=== PATIENT | male | born 1945 | race Caucasian/White ===

== ENCOUNTER 2018-05-27 13:00 | Outpatient (RCR) ==
--- NOTE | 2018-05-19 09:40 | RS.OPPTEV2 ---
Date of Note: 05/18/18 Visit #: 1 Number of visits approved by Insurance: n/a Date of Evaluation: 05/18/18 Payer Source: MEDICARE Date of Onset/Injury/Change in Status: 04/22/18 Surgery Performed?: Yes (R TKR) Treatment Diagnosis: aftercare following TKR History of Condition/Mechanism of Injury:: pt reports he has had long hx of problems with R knee. States had fx and pinning years ago. pt underwent R TKR on 04/22/[address] Calderon. 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 Functional Limitations: Sleep, Bending, Squatting, Ambulation, Community Access/ Integration Current Subjective/complaints:: pt reports he has not been icing his knee. States he did not feel it was important. Explained benefits of ice and elevation of RLE to decreased edema and pain. Treatment Side (optional): Right *Precautions: no electrical modalities due to pacemaker and h/o CA Medical History Medical History: Hypertension, COPD, Diabetes, Arthritis, Cancer (hodgkins lymphoma) Medical History Comments:: neuropathy Surgical History: Knee Replacement (R TKR 04/22/18) Surgical History Comments:: splenectomy, aortic valve replacement, pacemaker Smoking Status: Former smoker Hx Home Medications: losartan-HCTZ, metoprolol succinate, metformin, amlodipine , aspirin, xarelto, gabapentin, pantopraxole, simvastatin, symbicort, vitamin C , Iron, metoprolol tartrate Patient's Goals: get back to work Pain Assessment - Pain Description Pain Location: R knee Current Pain Intensity: 3 Worst Pain Intensity: 9 Functional Outcome Measure LE Functional Scale: 33 - G Codes & Severity Modifier G Codes & Modifier: n/a Source of G Code score: n/a Observation - Observation Posture: Forward Head, Rounded Shoulders, Increased Thoracic Kyphosis Handedness: Right Girth Measurement Lower: R knee 44.5cm pt with edema RLE nonpitting Gait - Gait Pattern General Gait Pattern Observation: Antalgic Gait Gait Comments: pt amb with antalgic gait due to R knee pain. pt with decreased heel strike/toe off gait pattern on R. pt amb with cane SBA with increased lat sway General Range of Motion: LUE WFL's, RUE shld flex is limited due to pain. LLE WFL's. RLE hip WFL, ankle WFL's Muscle Strength: LUE 5/5,. RUE shld flex 3-/5, elbow flex/ext 4+/5,. LLE 5/5. RLE hip flex 4/5, ankle DF/PF 4/5 Knee ROM: Left WFL's Knee Muscle Strength: Left WFL's - Right Knee ROM Right Knee Extension: -11 Right Knee Flexion: 100 (AAROM) Knee ROM Limitations: Soft Tissue Tightness, Muscle Weakness, Pain - Right Knee Strength Right Knee Extension: 3- Fair- Right Knee Flexion: 3 Fair Palpation Palpation Findings: Tenderness (R knee distal to incision) Sensation - Sensation Right Upper Extremity: Intact/Normal Left Upper Extremity: Intact/Normal Right Lower Extremity: Impaired Left Lower Extremity: Impaired Comments: pt does report occasional tingling/burning in BLE due to neuropathy Balance - Sitting Balance Static Sitting Balance: Normal Dynamic Sitting Balance: Normal - Standing Balance Static Standing Balance: Good Dynamic Standing Balance: Good - Comments Balance Assessment Comments: gait speed 0.8 consistent with limited community ambulator - Heat/Cryotherapy Treatment: Cryotherapy Comments:: R knee after ex x 10 mins Interventions - Exercise/Activities/Manual Therapy Exercises/Activities: pt performed RLE: QS with heel elevated, HS, SAQ, LAQ, SLR x 10 to 15 reps and hamstring stretch, standing hamstring curls x 5 Manual Therapy: n/a HOME EXERCISE PROGRAM: pt has written HEP from , added QS with heel elevated, hamstring stretch and standing ham curls - Charges Timed Code Treatment Minutes: 51 Total Treatment Time: 62 Procedures billed for this date of service:: eval med, ex EVALUATION COMPLEXITY LEVEL EVALUATION COMPLEXITY LEVEL: HISTORY: Medium (DM, OA, HTN), EXAM OF BODY SYSTEMS : Medium, CLINICAL PRESENTATION: Medium, CLINICAL DECISION MAKING: Medium Assessment Assessment: pt presents with decreased ROM R knee, decreased strength, balance, decreased gait ability. Feel pt would benefit from skilled PT for therex for LE strengthening/ROM as well as gait training and modalities to decrease edema. Patient Education: Home Exercise Program, Education of Plan of Care Rehab Potential: Good Short Term Goals Goal #1: pt independent with HEP Goal to be met by: 06/01/18 Goal #2: Improve R knee ROM flex 105 ext -5 Goal to be met by: 06/01/18 Goal #3: Improve gait sequencing and amb without cane in dept Goal to be met by: 06/01/18 Goal #4: pt with decreased edema RLE Goal to be met by: 06/01/18 Alcoholism Worker Goals Goal #1: pt demonstrate improved gait speed 1.0 meters/sec w/o cane independently Goal to be met by: 06/15/18 Goal #2: Improved R knee ROM flex 110 ext 0 Goal to be met by: 06/15/18 Goal #3: pt report decreased pain <3/10 with activity Goal to be met by: 06/15/18 Plan - Treatment to be Provided Procedures: Therapeutic Exercises, Therapeutic Activity, Gait Training, Manual Therapy, Massage, Patient Education Modalities: Cryotherapy - Treatment Plan Frequency: 2-3x a week Duration: 4 weeks Dates of Alcoholism Worker Goals: 06/15/18 Expiration date of current Insurance Approval:: n/a - Treatment Code (1) Aftercare following knee joint replacement surgery Code(s): Z47.1 - AFTERCARE FOLLOWING JOINT REPLACEMENT SURGERY; Z96.659 - PRESENCE OF UNSPECIFIED ARTIFICIAL KNEE JOINT Qualifiers: Laterality: right Qualified Code(s): Z47.1 - Aftercare following joint replacement surgery; Z96.651 - Presence of right artificial knee joint (2) Right knee pain Code(s): M25.561 - PAIN IN RIGHT KNEE Qualifiers: Chronicity: chronic Qualified Code(s): M25.561 - Pain in right knee; G89.29 - Other chronic pain (3) Effusion of knee joint right Code(s): M25.461 - EFFUSION, RIGHT KNEE (4) Stiffness of knee joint Qualifiers: Laterality: right Qualified Code(s): M25.661 - Stiffness of right knee, not elsewhere classified (5) Muscle weakness Code(s): M62.81 - MUSCLE WEAKNESS (GENERALIZED) (6) Gait difficulty Code(s): R26.9 - UNSPECIFIED ABNORMALITIES OF GAIT AND MOBILITY
--- NOTE | 2018-05-20 14:34 | RS.OPPTDN ---
Subjective Date of Note: 05/20/18 Visit #: 2 Number of visits approved by Insurance: 2-3x4 Date of Evaluation: 05/18/18 Payer Source: MEDICARE Treatment Diagnosis: aftercare following TKR Current Subjective/complaints:: Patient says he is hopeful to gain more motion of the knee so that he can return to work. He says that he has been trying to stretch his knee and uses ice at home. Patient says that he takes Tylenol prn. 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 Reports he awakens due to pain sometimes, but admits a history of sleep difficulty. *Precautions: no electrical modalities due to pacemaker and h/o CA - Heat/Cryotherapy Treatment: Cryotherapy (15 mins to the R knee ant/post in highly elevated position after therex) Interventions - Exercise/Activities/Manual Therapy Exercises/Activities: Patient began with receiving patellar mobs, ROM/ stretching for knee flexion/hamstring stretch and heel cord stretching for the R. Patient performs multiple reps for QS, heel slides, SAQ 1 04/29#, all 3x10 reps. Ball squeezes for isometric hip add, hip abd with knee extended, ham curls/DF green tband. Returned to more ROM and HS and stretching for knee flexion. LAQ at EOB after cryotherapy. Total minutes of Exercise: 33 Manual Therapy: n/a HOME EXERCISE PROGRAM: pt has written HEP from , added QS with heel elevated, hamstring stretch and standing ham curls - Charges Timed Code Treatment Minutes: 33 Total Treatment Time: 48 Procedures billed for this date of service:: cp, ex2 Assessment: Patient presents amb with straight cane ~200' to our dept slightly unsteady. He is able to carmel all therex with slight soreness at end ranges particularly with knee flexion. He demo swelling with 1+ pitting edema to the lower leg to ankle. He demo observable improvement with swelling following elevation and ice. Also, demo improved ease with active knee flexion and gait speed out of our dept after therapy. He should further improve with mobility and strength with continued visits. Patient Education: Education of diagnosis, Home Exercise Program, Home Safety, Education of Plan of Care Patient demonstrates compliance with HEP?: Yes Short Term Goals Goal #1: pt independent with HEP Goal to be met by: 06/01/18 Progress towards Goal:: Progressing Goal #2: Improve R knee ROM flex 105 ext -5 Goal to be met by: 06/01/18 Goal #3: Improve gait sequencing and amb without cane in dept Goal to be met by: 06/01/18 Goal #4: pt with decreased edema RLE Goal to be met by: 06/01/18 Progress towards Goal:: Progressing Warp Splitter Goals Goal #1: pt demonstrate improved gait speed 1.0 meters/sec w/o cane independently Goal to be met by: 06/15/18 Goal #2: Improved R knee ROM flex 110 ext 0 Goal to be met by: 06/15/18 Goal #3: pt report decreased pain <3/10 with activity Goal to be met by: 06/15/18 Plan Dates of Warp Splitter Goals: 06/15/18 Expiration date of current Insurance Approval:: 06/15/18 PLAN: Patient to continue 2-3 days per week for mobility and strength increase to the R knee
--- NOTE | 2018-05-22 14:28 | RS.OPPTDN ---
Subjective Date of Note: 05/22/18 Visit #: 3 Number of visits approved by Insurance: Reassess at 10th Date of Evaluation: 05/18/18 Payer Source: MEDICARE Treatment Diagnosis: aftercare following TKR Current Subjective/complaints:: Patient says he had a follow up yesterday with his ortho. He says he released him to return to work, however, Mr. 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 Reports his knee feels like it's going to give away today. Reports that he is working on HEP, but bending is the hardest for him. He is walking around at home without AD. States he does not return to MD until June. *Precautions: no electrical modalities due to pacemaker and h/o CA - Heat/Cryotherapy Treatment: Cryotherapy (15 mins to the R knee in elevated position supine after therex.) Interventions - Exercise/Activities/Manual Therapy Exercises/Activities: Patient continued with patellar mobs, ROM/stretching for knee flexion/hamstring stretch and heel cord stretching for the R. Patient performs multiple reps for QS, heel slides, SAQ 1 1/2#, all 3x10 reps. Knee extension stretching over bolster with intermittent active QS, ball squeezes for isometric hip add, hip abd with knee extended, ham curls/DF green tband. SLR 2x8, Returned to more ROM and HS and stretching for knee flexion. LAQ at EOB after cryotherapy. Began stationary bike forward/retro with intermittent cues to statically stretch for flexion and extension. 4 mins total. Total minutes of Exercise: 38 Manual Therapy: n/a HOME EXERCISE PROGRAM: pt has written HEP from , added QS with heel elevated, hamstring stretch and standing ham curls - Charges Timed Code Treatment Minutes: 38 Total Treatment Time: 53 Procedures billed for this date of service:: cp, ex3 Assessment: Patient demo mild swelling to the R knee extending to the ankle with 1+ pitting edema. He does show improvement with high elevation and cryotherapy again after therex. He has been experiencing times of near give way and fear of buckling, but appears steady in our dept. Continues to amb with SC, but admits independent amb at home. He was able to complete full revolutions on bike. He will need further strengthening and ROM activities to prepare him to return to work. Patient Education: Education of diagnosis, Body/Joint mechanics, Home Exercise Program, Home Safety, Education of Plan of Care Patient demonstrates compliance with HEP?: Yes Short Term Goals Goal #1: pt independent with HEP Goal to be met by: 06/01/18 Progress towards Goal:: Progressing Goal #2: Improve R knee ROM flex 105 ext -5 Goal to be met by: 06/01/18 Progress towards Goal:: Progressing Goal #3: Improve gait sequencing and amb without cane in dept Goal to be met by: 06/01/18 Goal #4: pt with decreased edema RLE Goal to be met by: 06/01/18 Progress towards Goal:: Progressing [facility] Goals Goal #1: pt demonstrate improved gait speed 1.0 meters/sec w/o cane independently Goal to be met by: 06/15/18 Goal #2: Improved R knee ROM flex 110 ext 0 Goal to be met by: 06/15/18 Goal #3: pt report decreased pain <3/10 with activity Goal to be met by: 06/15/18 Plan Dates of [facility] Goals: 06/15/18 Expiration date of current Insurance Approval:: 06/15/18 PLAN: Continue for therex to the R knee s/p TKR
--- NOTE | 2018-05-25 15:53 | RS.OPPTDN ---
Subjective Date of Note: 05/25/18 Visit #: 4 Number of visits approved by Insurance: 2-3x4 Date of Evaluation: 05/18/18 Payer Source: MEDICARE Treatment Diagnosis: aftercare following TKR Current Subjective/complaints:: Patient says that he does not feel he is getting any better. He asks how long will he have to have therapy before going back to work. He c/o ache to his knee and stiffness. *Precautions: no electrical modalities due to pacemaker and h/o CA - Heat/Cryotherapy Treatment: Hot Pack (15 mins surrounding the R knee in supine) Interventions - Exercise/Activities/Manual Therapy Exercises/Activities: Patient continued with patellar mobs, ROM/stretching for knee flexion/hamstring stretch and heel cord stretching for the R. Patient performs multiple reps for QS, heel slides, SAQ increased to 2 1/2#, all 3x10 reps. Knee extension stretching over bolster with intermittent active QS, ball squeezes for isometric hip add, hip abd with knee extended, ham curls/DF green tband. SLR 2x8, Returned to more ROM and HS and stretching for knee flexion. LAQ at EOB with assisted stretching afterwards. Continued with stationary bike forward/retro with intermittent cues to statically stretch for flexion and extension. 5 mins total. Patient needed to leave early to go to another MD appt. Total minutes of Exercise: 31 Manual Therapy: n/a HOME EXERCISE PROGRAM: pt has written HEP from , added QS with heel elevated, hamstring stretch and standing ham curls - Charges Timed Code Treatment Minutes: 31 Total Treatment Time: 46 Procedures billed for this date of service:: hp, ex2 Assessment: Applied heat today prior to therex to decrease ache and stiffness and to help with improving ROM. Patient amb using SC for the L UE instructing him on the reason why during his inquiry. Patient demo improvement with carmel to stretching R knee into flexion as this is the hardes t for him to tolerate. He is able to progress with strengthening to the R LE and demo improved ease with SLR and eccentric control. Patient Education: Education of diagnosis, Body/Joint mechanics, Home Exercise Program, Education of Plan of Care Patient demonstrates compliance with HEP?: Yes Short Term Goals Goal #1: pt independent with HEP Goal to be met by: 06/01/18 Progress towards Goal:: Progressing Goal #2: Improve R knee ROM flex 105 ext -5 Goal to be met by: 06/01/18 Progress towards Goal:: Progressing Goal #3: Improve gait sequencing and amb without cane in dept Goal to be met by: 06/01/18 Goal #4: pt with decreased edema RLE Goal to be met by: 06/01/18 Progress towards Goal:: Progressing Long-Term Goals Goal #1: pt demonstrate improved gait speed 1.0 meters/sec w/o cane independently Goal to be met by: 06/15/18 Goal #2: Improved R knee ROM flex 110 ext 0 Goal to be met by: 06/15/18 Goal #3: pt report decreased pain <3/10 with activity Goal to be met by: 06/15/18 Plan Dates of Long-Term Goals: 06/15/18 Expiration date of current Insurance Approval:: 06/15/18 PLAN: Continue with using heat intermittently to see if he is able to obtain more ROM and less ache to the R knee
--- NOTE | 2018-05-27 15:41 | RS.OPPTDN ---
Subjective Date of Note: 05/27/18 Visit #: 5 Number of visits approved by Insurance: Reassess at 10th, order is 2-3x4 Date of Evaluation: 05/18/18 Payer Source: MEDICARE Treatment Diagnosis: aftercare following TKR Current Subjective/complaints:: Patient asks, "When can I get rid of this cane? " He states he thought his pain should be gone by now. *Precautions: no electrical modalities due to pacemaker and h/o CA - Heat/Cryotherapy Treatment: Hot Pack (anterior/posterior R LE in supine x 15 mins) Interventions - Exercise/Activities/Manual Therapy Exercises/Activities: Patient continued with patellar mobs, ROM/stretching for knee flexion/hamstring stretch and heel cord stretching for the R. Patient performs multiple reps for QS, heel slides, SAQ increased to 3#, all 3x10 reps. Knee extension stretching over bolster with intermittent active QS, (on and off bolster), ball squeezes for isometric hip add, hip abd with knee extended, ham curls/DF green tband. SLR 2x8, Returned to more ROM and HS and stretching for knee flexion. LAQ 3# for terminal knee flexion and manual contract/relax without weight at EOB with assisted stretching afterwards. Continued with stationary bike forward/retro with intermittent cues to statically stretch for flexion and extension. 5 mins total. Began leg press machine for 30, 45, 60, 75# bilaterally x 10 ea. Patient educated in this activity with cues to control eccentric contractions and to perform slowly. Total minutes of Exercise: 40 Manual Therapy: n/a HOME EXERCISE PROGRAM: pt has written HEP from , added QS with heel elevated, hamstring stretch and standing ham curls - Charges Timed Code Treatment Minutes: 40 Total Treatment Time: 55 Procedures billed for this date of service:: hp, ex3 Assessment: Patient re-educated about his TKR and anatomy explaining recovery and that he demo good ROM for 4 weeks post op. He is amb with SC with slightly limited knee extension, but FWB. He is progressing with stretching and therex well carmel increased weight and multigym activities. He is wanting to return to work soon, but is understanding about his limitations and wants to be safe. Measurements will be taken on Friday. Patient Education: Education of diagnosis, Home Exercise Program, Education of Plan of Care Patient demonstrates compliance with HEP?: Yes Short Term Goals Goal #1: pt independent with HEP Goal to be met by: 06/01/18 Progress towards Goal:: Progressing Goal #2: Improve R knee ROM flex 105 ext -5 Goal to be met by: 06/01/18 Progress towards Goal:: Progressing Goal #3: Improve gait sequencing and amb without cane in dept Goal to be met by: 06/01/18 Goal #4: pt with decreased edema RLE Goal to be met by: 06/01/18 Progress towards Goal:: Progressing Longterm Goals Goal #1: pt demonstrate improved gait speed 1.0 meters/sec w/o cane independently Goal to be met by: 06/15/18 Goal #2: Improved R knee ROM flex 110 ext 0 Goal to be met by: 06/15/18 Goal #3: pt report decreased pain <3/10 with activity Goal to be met by: 06/15/18 Plan Dates of Lpn Rn Goals: 06/15/18 Expiration date of current Insurance Approval:: 06/15/18 PLAN: Patient to continue with stretching for ROM and progressive strengthening.
== END 2018-05-28 23:59 | disposition short-term general hospital (02) ==
PROVIDERS: ATTEND Orthopaedic Surgery
DX: Z47.1 Aftercare following joint replacement surgery (principal); Z96.651 Presence of right artificial knee joint; M25.561 Pain in right knee; G89.29 Other chronic pain; M25.461 Effusion, right knee; M25.661 Stiffness of right knee, not elsewhere classified; M62.81 Muscle weakness (generalized); R26.9 Unspecified abnormalities of gait and mobility

== ENCOUNTER 2018-06-23 10:00 | Outpatient (RCR) ==
--- NOTE | 2018-05-29 14:29 | RS.OPPTDN ---
Subjective Date of Note: 05/29/18 Visit #: 6 Number of visits approved by Insurance: Reassess at 10th Date of Evaluation: 05/18/18 Payer Source: MEDICARE Treatment Diagnosis: aftercare following TKR Current Subjective/complaints:: Patient says he is walking around in his house without his cane. He repeatedly asks when can he get rid of the cane all together and go back to work. He says he is stronger and doesn't feel like his knee is going to buckle as much. Admits he was sore after working on leg press , but states he wants to do it again to help his knees. *Precautions: no electrical modalities due to pacemaker and h/o CA - Heat/Cryotherapy Treatment: Hot Pack (20 mins to the anterior/posterior R knee ) Interventions - Exercise/Activities/Manual Therapy Exercises/Activities: Patient continued with patellar mobs, ROM/stretching for knee flexion/hamstring stretch and heel cord stretching for the R. Patient performs multiple reps for QS, heel slides, SAQ 3#, all 3x10 reps. Knee extension stretching over bolster with intermittent active QS, (on and off bolster), ball squeezes for isometric hip add, hip abd with knee extended, ham curls/DF green tband. SLR 2x8, Returned to more ROM and HS and stretching for knee flexion. LAQ 3# for terminal knee flexion and manual contract/relax without weight at EOB with assisted stretching afterwards. Continued with stationary bike forward/retro with intermittent cues to statically stretch for flexion and extension. 6mins total. Leg press machine for 30, 45, 60,# bilaterally with cues to stretch and hold during extension x 10 ea. Measurements taken. Total minutes of Exercise: 40 Manual Therapy: n/a HOME EXERCISE PROGRAM: pt has written HEP from , added QS with heel elevated, hamstring stretch and standing ham curls - Objective Findings Observations,measurements,etc.: -3 to 116 degrees actively,. 0 degrees with QS and 118 passively - Charges Timed Code Treatment Minutes: 40 Total Treatment Time: 60 Procedures billed for this date of service:: hp, ex3 Assessment: Patient attends with intermittently carrying SC to dept. He is progressing himself at home to amb independently. Consistent education on strengthening and making sure he is balanced enough and stable at home with independent gait before progressing to community. He is experiencing improved strength to the R LE, but still has reservations about returning to work too soon. He is apprehensive about "return to work evaluation" he must have to resume work duties after TKR, but wants to try. ROM is improving, see measurement tab. Patient Education: Education of diagnosis, Body/Joint mechanics, Home Exercise Program, Home Safety, Education of Plan of Care Patient demonstrates compliance with HEP?: Yes Short Term Goals Goal #1: pt independent with HEP Goal to be met by: 06/01/18 Progress towards Goal:: Progressing Goal #2: Improve R knee ROM flex 105 ext -5 Goal to be met by: 06/01/18 Progress towards Goal:: Met Goal #3: Improve gait sequencing and amb without cane in dept Goal to be met by: 06/01/18 Progress towards Goal:: Progressing Goal #4: pt with decreased edema RLE Goal to be met by: 06/01/18 Progress towards Goal:: Progressing Retirement Goals Goal #1: pt demonstrate improved gait speed 1.0 meters/sec w/o cane independently Goal to be met by: 06/15/18 Goal #2: Improved R knee ROM flex 110 ext 0 Goal to be met by: 06/15/18 Progress towards goal: Partially Met (met flexion goal) Goal #3: pt report decreased pain <3/10 with activity Goal to be met by: 06/15/18 Plan Dates of Retirement Goals: 06/15/18 Expiration date of current Insurance Approval:: 06/15/18 PLAN: Continue progressing for extension to the R knee to assist with more stable ambulation and wean from RI to independent.
--- NOTE | 2018-06-01 16:08 | RS.OPPTDN ---
Subjective Date of Note: 06/01/18 Visit #: 7 Number of visits approved by Insurance: 2-3x4 Date of Evaluation: 05/18/18 Payer Source: MEDICARE Treatment Diagnosis: aftercare following TKR Current Subjective/complaints:: Patient reports that he is using his cane less. Reports he is gaining strength also, but is still having trouble with getting his knee straight. *Precautions: no electrical modalities due to pacemaker and h/o CA - Heat/Cryotherapy Treatment: Hot Pack (15 mins to the R knee in extension stretch position) Interventions - Exercise/Activities/Manual Therapy Exercises/Activities: Patient continued with patellar mobs, ROM/stretching for knee flexion/hamstring stretch and heel cord stretching for the R. Patient performs multiple reps for QS, heel slides, SAQ 3#, all 3x10 reps. Knee extension stretching over bolster with intermittent active QS, (on and off bolster), ball squeezes for isometric hip add, hip abd with knee extended, ham curls/DF green tband. SLR 2x8, Returned to more ROM and HS and stretching for knee flexion. LAQ 3# for terminal knee flexion and manual contract/relax without weight at EOB with assisted stretching afterwards. Continued with stationary bike forward/retro with intermittent cues to statically stretch for flexion and extension. 6mins total. Leg press machine for 30, 45, 60,# bilaterally with cues to stretch and hold during extension x 10 ea. Total minutes of Exercise: 40 Manual Therapy: n/a HOME EXERCISE PROGRAM: pt has written HEP from , added QS with heel elevated, hamstring stretch and standing ham curls - Charges Timed Code Treatment Minutes: 40 Total Treatment Time: 60 Procedures billed for this date of service:: hp, ex3 Assessment: Patient amb to our dept with carrying SC only setting it down once ~ 150'. He is carmel increased ext stretching and less swelling into the R LE. Patient Education: Home Exercise Program, Education of Plan of Care Patient demonstrates compliance with HEP?: Yes Short Term Goals Goal #1: pt independent with HEP Goal to be met by: 06/01/18 Progress towards Goal:: Progressing Goal #2: Improve R knee ROM flex 105 ext -5 Goal to be met by: 06/01/18 Progress towards Goal:: Met Goal #3: Improve gait sequencing and amb without cane in dept Goal to be met by: 06/01/18 Progress towards Goal:: Progressing Goal #4: pt with decreased edema RLE Goal to be met by: 06/01/18 Progress towards Goal:: Progressing Halfway Goals Goal #1: pt demonstrate improved gait speed 1.0 meters/sec w/o cane independently Goal to be met by: 06/15/18 Goal #2: Improved R knee ROM flex 110 ext 0 Goal to be met by: 06/15/18 Progress towards goal: Partially Met (met flexion goal) Goal #3: pt report decreased pain <3/10 with activity Goal to be met by: 06/15/18 Plan Dates of Halfway Goals: 06/15/18 Expiration date of current Insurance Approval:: 06/15/18 PLAN: Patient to continue progressing R LE for ROM to assist with gait
--- NOTE | 2018-06-03 11:30 | RS.OPPTDN ---
Subjective Date of Note: 06/03/18 Visit #: 8 Number of visits approved by Insurance: Reassess at 10th Date of Evaluation: 05/18/18 Payer Source: MEDICARE Treatment Diagnosis: aftercare following TKR Current Subjective/complaints:: Patient says he feels unsteady today, but admits he feels this way everyday. He reports rain is affecting his swelling and aches today. *Precautions: no electrical modalities due to pacemaker and h/o CA - Heat/Cryotherapy Treatment: Cryotherapy (to anterior and posterior knee/calf in highly elevated position after therex x 20 mins) Interventions - Exercise/Activities/Manual Therapy Exercises/Activities: Patient continued with patellar mobs, ROM/stretching for knee flexion/hamstring stretch and heel cord stretching for the R. Patient performs multiple reps for QS, heel slides, SAQ 3#, all 3x10 reps. Knee extension stretching over bolster with intermittent active QS, (on and off bolster), ball squeezes for isometric hip add, hip abd with knee extended, ham curls/DF green tband. SLR 2x8, Ended with more patellar mobs and knee extension stretching. Prone: extension hangs with and without overpressure. Cryotherapy after. Total minutes of Exercise: 38 Manual Therapy: n/a HOME EXERCISE PROGRAM: pt has written HEP from , added QS with heel elevated, hamstring stretch and standing ham curls - Charges Timed Code Treatment Minutes: 38 Total Treatment Time: 58 Procedures billed for this date of service:: cp, ex3 Assessment: Patient progressing with demo 0 degrees extension after all therex and stretching. He stumbles once, but easily corrects and did not lose bal. He is now carrying his cane along with him in/out dept. Patient demo mild swelling with 1+edema along the lower leg, but none at ankle, however this does improve with cryotherapy. Prompts given intermittently for heel strike/toe off with gait. Patient Education: Home Exercise Program, Education of Plan of Care Patient demonstrates compliance with HEP?: Yes Short Term Goals Goal #1: pt independent with HEP Goal to be met by: 06/01/18 Progress towards Goal:: Progressing Goal #2: Improve R knee ROM flex 105 ext -5 Goal to be met by: 06/01/18 Progress towards Goal:: Met Goal #3: Improve gait sequencing and amb without cane in dept Goal to be met by: 06/01/18 Progress towards Goal:: Partially Met (Amb without AD, but still educated pt about proper heel strike) Goal #4: pt with decreased edema RLE Goal to be met by: 06/01/18 Progress towards Goal:: Progressing [facility] Goals Goal #1: pt demonstrate improved gait speed 1.0 meters/sec w/o cane independently Goal to be met by: 06/15/18 Goal #2: Improved R knee ROM flex 110 ext 0 Goal to be met by: 06/15/18 Progress towards goal: Partially Met (met flexion goal, demo 0 today, but not yet consistent) Goal #3: pt report decreased pain <3/10 with activity Goal to be met by: 06/15/18 Plan Dates of Manager Land Goals: 06/15/18 Expiration date of current Insurance Approval:: 06/15/18 PLAN: Continue progressing ROM to demo consistent 0 degrees.
--- NOTE | 2018-06-05 14:11 | RS.OPPTDN ---
Subjective Date of Note: 06/05/18 Visit #: 9 Number of visits approved by Insurance: Reassess at 10th Date of Evaluation: 05/18/18 Payer Source: MEDICARE Treatment Diagnosis: aftercare following TKR Current Subjective/complaints:: Patient says he was not able to see any improvement with pain or swelling with ice last session. He does say he is feeling more comfortable with walking without *Precautions: no electrical modalities due to pacemaker and h/o CA Interventions - Exercise/Activities/Manual Therapy Exercises/Activities: Patient continued with patellar mobs, ROM/stretching for knee flexion/hamstring stretch and heel cord stretching for the R. Patient performs multiple reps for QS, heel slides, SAQ 3#, all 3x10 reps. Knee extension stretching over bolster with intermittent active QS, (on and off bolster), ball squeezes for isometric hip add, hip abd with knee extended, ham curls/DF green tband. SLR 2x8, Ended with more patellar mobs and knee extension stretching. Leg press 45#, 60#, 75# 2x10, stationary bike for/retro 7mins. Total minutes of Exercise: 50 Manual Therapy: n/a HOME EXERCISE PROGRAM: pt has written HEP from , added QS with heel elevated, hamstring stretch and standing ham curls - Charges Timed Code Treatment Minutes: 50 Total Treatment Time: 50 Procedures billed for this date of service:: ex3 Assessment: Patient becoming more confident with amb without AD at home and does not feel like he needs to rely on it when coming to therapy. He is able to advance with all therex well demo less swelling to the R LE to ankle allowing improved extension to -1 to -2 at rest and 0 with QS. Patient Education: Home Safety, Education of Plan of Care Patient demonstrates compliance with HEP?: Yes Short Term Goals Goal #1: pt independent with HEP Goal to be met by: 06/01/18 Progress towards Goal:: Progressing Goal #2: Improve R knee ROM flex 105 ext -5 Goal to be met by: 06/01/18 Progress towards Goal:: Met Goal #3: Improve gait sequencing and amb without cane in dept Goal to be met by: 06/01/18 Progress towards Goal:: Partially Met (Amb without AD, but still educated pt about proper heel strike) Goal #4: pt with decreased edema RLE Goal to be met by: 06/01/18 Progress towards Goal:: Progressing Retirement Goals Goal #1: pt demonstrate improved gait speed 1.0 meters/sec w/o cane independently Goal to be met by: 06/15/18 Goal #2: Improved R knee ROM flex 110 ext 0 Goal to be met by: 06/15/18 Progress towards goal: Partially Met (met flexion goal, demo 0 today, but not yet consistent) Goal #3: pt report decreased pain <3/10 with activity Goal to be met by: 06/15/18 Plan Dates of Retirement Goals: 06/15/18 Expiration date of current Insurance Approval:: 06/15/18 PLAN: REassess next session.
--- NOTE | 2018-06-10 16:22 | RS.OPPTDN ---
Subjective Date of Note: 06/10/18 Visit #: 11 Number of visits approved by Insurance: 12 Date of Evaluation: 05/18/18 Payer Source: MEDICARE Treatment Diagnosis: aftercare following TKR Current Subjective/complaints:: Patient says that he feels he is gaining some stability to his knee and thinks his dizziness at last appt was due to his glasses. Reports that he just had his glasses strengthened and may be making him feel unsteady. *Precautions: no electrical modalities due to pacemaker and h/o CA Interventions - Exercise/Activities/Manual Therapy Exercises/Activities: Patient continued with patellar mobs, ROM/stretching for knee flexion/hamstring stretch and heel cord stretching for the R. Patient performs multiple reps for QS, heel slides, SAQ increased to 4#, all 3x10 reps. Knee extension stretching over bolster with intermittent active QS, (on and off bolster), ball squeezes for isometric hip add, hip abd with knee extended, ham curls/DF green tband. SLR 2x8, Ended with more patellar mobs and knee extension stretching. EOB: contract/relax, long axis distraction, Leg press 45 #, 60#, 75, 90# 2x10, Omitted stationary bike due to doing this at home daily. Standing at railing step up board x 10 reps with instruction on sequencing using 1 hand rail. Total minutes of Exercise: 45 Manual Therapy: n/a HOME EXERCISE PROGRAM: pt has written HEP from , added QS with heel elevated, hamstring stretch and standing ham curls - Charges Timed Code Treatment Minutes: 45 Total Treatment Time: 45 Procedures billed for this date of service:: ex3 Assessment: Patient demo 4+-5/5 quads and hams today. He demo improved amb and stability allowing him to walk within the hospital carrying his cane at times while removing his glasses. He believes his new strengthened glasses are too strong and was the reason to why he was unsteady at last session. Patient Education: Home Exercise Program, Home Safety Patient demonstrates compliance with HEP?: Yes Short Term Goals Goal #1: pt independent with HEP Goal to be met by: 06/01/18 Progress towards Goal:: Progressing Goal #2: Improve R knee ROM flex 105 ext -5 Goal to be met by: 06/01/18 Progress towards Goal:: Met Goal #3: Improve gait sequencing and amb without cane in dept Goal to be met by: 06/01/18 Progress towards Goal:: Partially Met (Amb without AD, but still educated pt about proper heel strike) Goal #4: pt with decreased edema RLE Goal to be met by: 06/01/18 Progress towards Goal:: Progressing [facility] Home Goals Goal #1: pt demonstrate improved gait speed 1.0 meters/sec w/o cane independently Goal to be met by: 06/15/18 Goal #2: Improved R knee ROM flex 110 ext 0 Goal to be met by: 06/15/18 Progress towards goal: Partially Met (met flexion goal, demo 0 today, but not yet consistent) Goal #3: pt report decreased pain <3/10 with activity Goal to be met by: 06/15/18 Plan Dates of Production Quality Manager Goals: 06/15/18 Expiration date of current Insurance Approval:: 06/15/18 PLAN: 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 Patient may benefit from BIW x 2-3 more weeks.
--- NOTE | 2018-06-12 10:07 | RS.PTSUM ---
Progress Note/Summary Date of Note: 06/08/18 Date of Evaluation: 05/18/18 Number of Visits: 10 Number of visits approved by Insurance: n/a Reporting Period for this Progress Note: 05/18/18-06/08/18 Current Complaints/Gains: pt reports that he feels he has improved stability of his knee and is able to amb in the home with cane independently. pt states he is working on HEP often and wants to return to work as soon as possible. States he takes tylenol intermittently. pt reports that he has to be able to amb without cane to return to work. Objective Measurements/Presentation: ROM R knee flex 121 ext 0 with quad set, AROM ext -2. Strength quads 4+ to 5/5 quads and hamstrings, pt has advanced with step ups and leg press. Amb with straight cane community distances. LE functional scale 36/80 eval . G Codes: n/a Source of G Code Score: n/a - Short Term Goals Goal #1: pt independent with HEP Goal to be met by: 06/17/18 Progress towards Goal:: Progressing Goal #2: Improve R knee ROM flex 105 ext -5 Goal to be met by: 06/01/18 Progress towards Goal:: Met Goal #3: Improve gait sequencing and amb without cane in dept Goal to be met by: 06/17/18 Progress towards Goal:: Met Goal #4: pt with decreased edema RLE Goal to be met by: 06/01/18 Progress towards Goal:: Met - Correction Goals Goal #1: pt demonstrate improved gait speed 1.0 meters/sec w/o cane independently Goal to be met by: 06/26/18 Goal #2: Improved R knee ROM flex 110 ext 0 Goal to be met by: 06/26/18 Progress towards goal: Partially Met (not consistently met) Goal #3: pt report decreased pain <3/10 with activity Goal to be met by: 06/26/18 Goal #4: pt amb independently without AD in community as well as up/down ramp Goal to be met by: 06/26/18 - Assessment Assessment of Improvement/Progress: pt has met STG 2, 4 and progressing with remaining goals. pt continues to be limited with strength, ROM as well as gait ability. Feel pt would benefit from skilled PT for therex to focus on strengthening and ROM with gait training working on amb without AD and up/down ramp. Summary: Patient has made progress towards goals., Patient demonstrates potential to gain increased function with therapy - Plan Plan: Will request continuation of therapy sessions. Comments: order requested for 2x a week for 2 more weeks to begin 06/15/18. Spoke with Krystal and she report will fax today as well as fax signed POC today. (06/12/18) Frequency: 2 X week Duration: 2 weeks Dates of Correction Goals: 06/26/18 Expiration date of current Insurance Approval:: n/a
--- NOTE | 2018-06-12 10:43 | RS.OPPTDN ---
Subjective Date of Note: 06/12/18 Visit #: 12 Number of visits approved by Insurance: 12 Date of Evaluation: 05/18/18 Payer Source: MEDICARE Treatment Diagnosis: aftercare following TKR Current Subjective/complaints:: Patient says he wants to continue therapy so that he can be more steady and to return to work. He reports he hasn't had a chance to have his glasses looked at to see if the strength is affecting his recent unsteadiness. He says he is using his stationary bike 30 mins daily and says he feels that has helped him significantly. *Precautions: no electrical modalities due to pacemaker and h/o CA Interventions - Exercise/Activities/Manual Therapy Exercises/Activities: Patient continued with patellar mobs, ROM/stretching for knee flexion/hamstring stretch and heel cord stretching for the R. Patient performs multiple reps for QS, heel slides, SAQ 4#, all 3x10 reps. Knee extension stretching over bolster with intermittent active QS, (on and off bolster), ball squeezes for isometric hip add, hip abd with knee extended, ham curls/DF green tband. SLR 2x8, Ended with more patellar mobs and knee extension stretching. EOB: contract/relax, long axis distraction, Leg press 45#, 60#, 75 , 90, and 105# 2x10, Omitted stationary bike due to doing this at home daily. Standing at railing step up board 2 x 10 reps with instruction on sequencing using 1 hand rail and then pt performing without prompts and he was able to perform correctly. Measurements taken. Total minutes of Exercise: 43 Manual Therapy: n/a HOME EXERCISE PROGRAM: pt has written HEP from , added QS with heel elevated, hamstring stretch and standing ham curls - Objective Findings Observations,measurements,etc.: -2 to 121 actively. He is able to obtain 0 degrees with active QS and passively. - Charges Timed Code Treatment Minutes: 43 Total Treatment Time: 43 Procedures billed for this date of service:: ex3 Assessment: Suggested patient to continue BIW x 2 more weeks to allow him more time to work on descending ramp outside our dept to prepare for work duties and to allow him to be more stable. Also, working on weaning from cane for community distances if able. Demo improved quad control with SLR today with decreased extension lag. Patient Education: Education of Plan of Care Patient demonstrates compliance with HEP?: Yes Short Term Goals Goal #1: pt independent with HEP Goal to be met by: 06/17/18 Progress towards Goal:: Met Comments:: uses stationary bike 30 mins daily along with other stretching and strength Goal #2: Improve R knee ROM flex 105 ext -5 Goal to be met by: 06/01/18 Progress towards Goal:: Met Goal #3: Improve gait sequencing and amb without cane in dept Goal to be met by: 06/17/18 Progress towards Goal:: Met Goal #4: pt with decreased edema RLE Goal to be met by: 06/01/18 Progress towards Goal:: Met Comments:: continues with slight intermittently Demand Inspector Goals Goal #1: pt demonstrate improved gait speed 1.0 meters/sec w/o cane independently Goal to be met by: 06/26/18 Goal #2: Improved R knee ROM flex 110 ext 0 Goal to be met by: 06/26/18 Progress towards goal: Partially Met (not consistently met) Goal #3: pt report decreased pain <3/10 with activity Goal to be met by: 06/26/18 Progress towards goal: Progressing Goal #4: pt amb independently without AD in community as well as up/down ramp Goal to be met by: 06/26/18 Comments: will begin next week if weather allows Plan Dates of Custodial Goals: 06/26/18 Expiration date of current Insurance Approval:: 06/26/18 PLAN: Patient to attend BIW next week x 2 weeks as we have received said order
--- NOTE | 2018-06-16 14:12 | RS.OPPTDN ---
Subjective Date of Note: 06/16/18 Visit #: 13 Number of visits approved by Insurance: 2x2 dated 06/15/18 Date of Evaluation: 05/18/18 Payer Source: MEDICARE Treatment Diagnosis: aftercare following TKR Current Subjective/complaints:: Patient says he was hurting more yesterday and Friday. He asks if it could be from riding stationary bike daily. He has been working on his bike 30 mins daily for some time now at this time. He says he has been working on straightening his knee more at home. *Precautions: no electrical modalities due to pacemaker and h/o CA Interventions - Exercise/Activities/Manual Therapy Exercises/Activities: Patient continued with patellar mobs, ROM/stretching for knee flexion/hamstring stretch and heel cord stretching for the R. Patient performs multiple reps for QS, heel slides, SAQ 4#, all 3x10 reps. Knee extension stretching over bolster with intermittent active QS, (on and off bolster), ball squeezes for isometric hip add, hip abd with knee extended, ham curls/DF progressed to blue tband. SLR 2x10, Ended with more patellar mobs and knee extension stretching. EOB: contract/relax, long axis distraction, Leg press 45#, 60#, 75, 90, and 105# 2x10, Standing at railing 3# on R LE for ham curls, hip abd, hip flexion, heel raises x 10. Minisquats x 5. Leg press 60, 75, 105# x 12. Total minutes of Exercise: 46 Manual Therapy: n/a HOME EXERCISE PROGRAM: pt has written HEP from , added QS with heel elevated, hamstring stretch and standing ham curls - Charges Timed Code Treatment Minutes: 46 Total Treatment Time: 46 Procedures billed for this date of service:: ex3 Assessment: Patient som improved knee extension at beginning of treatment before aggressive therex. He has had elevated pain and thought it could be related to stationary bike at home, but he has been working on it daily for the last 2 weeks. Patient Education: Education of Plan of Care Patient demonstrates compliance with HEP?: Yes Short Term Goals Goal #1: pt independent with HEP Goal to be met by: 06/17/18 Progress towards Goal:: Met Goal #2: Improve R knee ROM flex 105 ext -5 Goal to be met by: 06/01/18 Progress towards Goal:: Met Goal #3: Improve gait sequencing and amb without cane in dept Goal to be met by: 06/17/18 Progress towards Goal:: Met Goal #4: pt with decreased edema RLE Goal to be met by: 06/01/18 Progress towards Goal:: Met Lead Atg Developer Goals Goal #1: pt demonstrate improved gait speed 1.0 meters/sec w/o cane independently Goal to be met by: 06/26/18 Goal #2: Improved R knee ROM flex 110 ext 0 Goal to be met by: 06/26/18 Progress towards goal: Partially Met (not consistently met) Goal #3: pt report decreased pain <3/10 with activity Goal to be met by: 06/26/18 Progress towards goal: Progressing Goal #4: pt amb independently without AD in community as well as up/down ramp Goal to be met by: 06/26/18 Plan Dates of Long-Term Goals: 06/26/18 Expiration date of current Insurance Approval:: 06/26/18 PLAN: Patient to continue with further orders to improve R LE ROM and strength to prepare independent ambulation.
--- NOTE | 2018-06-23 12:05 | RS.OPPTDN ---
Subjective Date of Note: 06/23/18 Visit #: 15 Number of visits approved by Insurance: 16 Date of Evaluation: 05/18/18 Payer Source: MEDICARE Treatment Diagnosis: aftercare following TKR Current Subjective/complaints:: Patient says he feels he is not ready to return to work yet. Says he is much better and is walking steadier, but does not think he can perform his work requirements. He says he has been able to perform steps easier and pain remains little to none. *Precautions: no electrical modalities due to pacemaker and h/o CA Interventions - Exercise/Activities/Manual Therapy Exercises/Activities: Patient continued with aggressive stretching for R knee extension/calf. Patellar mobs, ROM/stretching for knee flexion/hamstring stretch. Patient performs multiple reps for QS, heel slides, SAQ 4#, all 3x15 reps. Knee extension stretching over bolster with intermittent active QS, (on and off bolster), ball squeezes for isometric hip add, hip abd in hooklying with blue tband, ham curls/DF blue tband. SLR 2x8 with prompts to keep knee extended, Ended with more patellar mobs and knee extension stretching. Leg press starting at 75, 90, 105, 120# 2x10, Patient practices amb down/up our outside ramp ~25' using SC and independently steadily. Total minutes of Exercise: 40 Manual Therapy: n/a HOME EXERCISE PROGRAM: pt has written HEP from , added QS with heel elevated, hamstring stretch and standing ham curls - Charges Timed Code Treatment Minutes: 40 Total Treatment Time: 40 Procedures billed for this date of service:: ex3 Assessment: Patient admits no pain or difficulty with any ADLs at home or in community at this point, but is still apprehensive about returning to work. He desires to do so, but feels he needs to be stronger and walk independently, although he does amb in hallway carrying SC at times. He continues to have slight deficit in R knee extension with amb, but able to achieve full extension with QS and with mild stretching here. He demo ability to amb up/down our ramp using his SC and no LOB or obvious difficulty. He has 1 day remaining of approved therapy and he is to continue with progressive HEP at home thereafter. Patient Education: Education of Plan of Care Patient demonstrates compliance with HEP?: Yes Short Term Goals Goal #1: pt independent with HEP Goal to be met by: 06/17/18 Progress towards Goal:: Met Goal #2: Improve R knee ROM flex 105 ext -5 Goal to be met by: 06/01/18 Progress towards Goal:: Met Goal #3: Improve gait sequencing and amb without cane in dept Goal to be met by: 06/17/18 Progress towards Goal:: Met Goal #4: pt with decreased edema RLE Goal to be met by: 06/01/18 Progress towards Goal:: Met Nursing Home Goals Goal #1: pt demonstrate improved gait speed 1.0 meters/sec w/o cane independently Goal to be met by: 06/26/18 Goal #2: Improved R knee ROM flex 110 ext 0 Goal to be met by: 06/26/18 Progress towards goal: Partially Met (not consistently met) Goal #3: pt report decreased pain <3/10 with activity Goal to be met by: 06/26/18 Progress towards goal: Progressing Goal #4: pt amb independently without AD in community as well as up/down ramp Goal to be met by: 06/26/18 Progress towards goal: Progressing (Performed today, intermittently using SC, no hand rail) Plan Dates of Nursing Home Goals: 06/26/18 Expiration date of current Insurance Approval:: 06/26/18 PLAN: Complete final visit Friday
== END 2018-06-25 23:59 ==
PROVIDERS: ATTEND Orthopaedic Surgery
DX: Z47.1 Aftercare following joint replacement surgery (principal); Z96.651 Presence of right artificial knee joint

== ENCOUNTER 2018-06-26 10:02 | Outpatient (RCR) ==
--- NOTE | 2018-06-26 16:43 | RS.OPPTDN ---
Subjective Date of Note: 06/26/18 Visit #: 16 Number of visits approved by Insurance: 16 Date of Evaluation: 05/18/18 Payer Source: MEDICARE Treatment Diagnosis: aftercare following TKR Current Subjective/complaints:: Patient says his knee nearly buckled on him walking down a ramp yesterday. He says he does not understand why this happens. He said his cane had saved him from falling. He expresses often that he wants to return to work, but does not know how he could do it. *Precautions: no electrical modalities due to pacemaker and h/o CA Interventions - Exercise/Activities/Manual Therapy Exercises/Activities: Patient continued with aggressive stretching for R knee extension/calf. Patellar mobs, ROM/stretching for knee flexion/hamstring stretch. Patient performs multiple reps for QS, heel slides, SAQ 4#, all 3x15 reps. Knee extension stretching over bolster with intermittent active QS, (on and off bolster), ball squeezes for isometric hip add, hip abd in hooklying with blue tband, ham curls/DF blue tband. SLR 2x8 with prompts to keep knee extended, Ended with more patellar mobs and knee extension stretching. Leg press starting at 75, 90, 105, 120# 2x10, Measurements taken, LE Functional assessment completed. Total minutes of Exercise: 46 Manual Therapy: n/a HOME EXERCISE PROGRAM: pt has written HEP from , added QS with heel elevated, hamstring stretch and standing ham curls - Objective Findings Observations,measurements,etc.: -2 to 124 degrees in supine after therex, Patient able to achieve 0 extension with QS and with stretching. - Charges Timed Code Treatment Minutes: 46 Total Treatment Time: 46 Procedures billed for this date of service:: ex3 Assessment: Patient has demo 49/80 for LE Functional Scale or 39% impairment. Eval reveals 33/80 or 69% impairment. He has demo improved ROM, increased general strength to the R LE, and improved gait demo less flexed posture. He is highly motivated to return to work, but unsure of ability to perform duties at this point. He will be assessed at [facility] per his work requirement soon. Patient was given tbands for HEP and recommended continued stretches and elevation to improve swelling and flexibility. Patient Education: Education of diagnosis, Body/Joint mechanics, Home Exercise Program, Home Safety, Education of Plan of Care Patient demonstrates compliance with HEP?: Yes Short Term Goals Goal #1: pt independent with HEP Goal to be met by: 06/17/18 Progress towards Goal:: Met Goal #2: Improve R knee ROM flex 105 ext -5 Goal to be met by: 06/01/18 Progress towards Goal:: Met Goal #3: Improve gait sequencing and amb without cane in dept Goal to be met by: 06/17/18 Progress towards Goal:: Met Goal #4: pt with decreased edema RLE Goal to be met by: 06/01/18 Progress towards Goal:: Met Hospital Scientist Goals Goal #1: pt demonstrate improved gait speed 1.0 meters/sec w/o cane independently Goal to be met by: 06/26/18 Progress towards goal: Progressing Goal #2: Improved R knee ROM flex 110 ext 0 Goal to be met by: 06/26/18 Progress towards goal: Partially Met (not consistently met) Goal #3: pt report decreased pain <3/10 with activity Goal to be met by: 06/26/18 Progress towards goal: Progressing Goal #4: pt amb independently without AD in community as well as up/down ramp Goal to be met by: 06/26/18 Progress towards goal: Partially Met (intermittently uses SC) Plan Dates of Hospital Scientist Goals: 06/26/18 Expiration date of current Insurance Approval:: 06/26/18 PLAN: Discontinue as he has completed original order and a continuation order. He will return to ortho MD follow up 07/20/18.
--- NOTE | 2018-06-29 12:02 | RS.OPPTDC ---
Date of Discharge: 06/26/18 Date of Evaluation: 05/18/18 Number of Visits: 16 Treatment Diagnosis: aftercare following TKR Current Level of Function: ROM R knee flex 124, ext -2-3 AROM, with QS and stretching he is able to achieve 0. He demonstrates 5/5 mmt quads and hamstrings. pt amb intermittently with straight cane in and out of our dept. He has been able to descend outdoor ramp without handrails. Current Complaints/Gains: pt reports less pain and improved mobility overall to the R knee. pt remains anxious about returning to work, which is what he desires. He is working on home stretchines and walking without cane intermittently at home. Functional Outcome Measure LE Functional Scale: 49 (improved from 33 on eval) - G Codes & Severity Modifier G Codes & Modifier: n/a Source of G Code score: n/a Observation - Observation Posture: Forward Head, Rounded Shoulders, Increased Thoracic Kyphosis Handedness: Right Gait - Gait Pattern General Gait Pattern Observation: Antalgic Gait, Decrease Stride Lngth (R) Interventions - Exercise/Activities/Manual Therapy Exercises/Activities: n/a Manual Therapy: n/a HOME EXERCISE PROGRAM: pt has written HEP from , added QS with heel elevated, hamstring stretch and standing ham curls - Charges Timed Code Treatment Minutes: n/a Total Treatment Time: n.a Procedures billed for this date of service:: n/a Assessment Assessment: pt demonstrated improvement with gait, ROM as well as strength. pt has met all STG's, made progress toward LTG's. pt limited due to decreased strength and pt feeling unstable at times. Eyesight also has limited some progress contributing to decreased balance. Patient Education: Home Exercise Program, Education of Plan of Care Rehab Potential: Good Short Term Goals Goal #1: pt independent with HEP Goal to be met by: 06/17/18 Progress towards Goal:: Met Goal #2: Improve R knee ROM flex 105 ext -5 Goal to be met by: 06/01/18 Progress towards Goal:: Met Goal #3: Improve gait sequencing and amb without cane in dept Goal to be met by: 06/17/18 Progress towards Goal:: Met Goal #4: pt with decreased edema RLE Goal to be met by: 06/01/18 Progress towards Goal:: Met Email Marketing Executive Goals Goal #1: pt demonstrate improved gait speed 1.0 meters/sec w/o cane independently Goal to be met by: 06/26/18 Progress towards goal: Progressing Goal #2: Improved R knee ROM flex 110 ext 0 Goal to be met by: 06/26/18 Progress towards goal: Partially Met (not consistently met) Goal #3: pt report decreased pain <3/10 with activity Goal to be met by: 06/26/18 Progress towards goal: Progressing Goal #4: pt amb independently without AD in community as well as up/down ramp Goal to be met by: 06/26/18 Progress towards goal: Partially Met (intermittently uses SC) Plan Reason for Discharge:: Maximum Potential Met
== END 2018-07-26 23:59 ==
PROVIDERS: ATTEND Orthopaedic Surgery
DX: Z47.1 Aftercare following joint replacement surgery (principal); Z96.651 Presence of right artificial knee joint